=== PATIENT | male | born 1945 | race Caucasian/White ===

== ENCOUNTER 2016-09-01 17:57 | Emergency (ER) | payer OTHER, MEDICAID ==
[2016-09-01 18:11] VITALS: BP 126/91; PULSE 91; RESP 18; TEMP 98.2; O2SAT 93
[2016-09-01] MEDS ORDERED: METAXALONE 800 MG TAB PO ONE (18:37)
--- NOTE | 2016-09-01 18:41 | EDPHY ---
H & P Stated Complaint: middle back pain, fall Time Seen by Provider: 09/01/16 18:29 HPI/ROS: CHIEF COMPLAINT: Back pain HISTORY OF PRESENT ILLNESS: The patient is a 71-year-old man who rolled off of his bed this morning and scratched his back on the [place] chest. He has an abrasion to his left lateral back and a small hematoma. No laceration. No bony tenderness. He has not had any weakness or numbness. No bowel or bladder abnormalities. He is able to ambulate without difficulty. He does take Vicodin at home for chronic back pain but this has not been helping him today. REVIEW OF SYSTEMS: Constitutional: denies: chills, fever, recent illness, recent injury EENTM: denies: blurred vision, double vision, nose congestion Respiratory: denies: cough, shortness of breath Cardiac: denies: chest pain, irregular heart rate, lightheadedness, palpitations Gastrointestinal/Abdominal: denies: abdominal pain, diarrhea, nausea, vomiting, blood streaked stools Genitourinary: denies: dysuria, frequency, hematuria, pain Musculoskeletal: See HPI Skin: See HPI Neurological: denies: headache, numbness, paresthesia, tingling, dizziness, weakness Hematologic/Lymphatic: denies: blood clots, easy bleeding, easy bruising Immunologic/allergic: denies: HIV/AIDS, transplant EXAM: GENERAL: Well-appearing, well-nourished and in no acute distress. HEAD: Atraumatic, normocephalic. EYES: Pupils equal round and reactive to light, extraocular movements intact, sclera anicteric, conjunctiva are normal. ENT: TMs normal, nares patent, oropharynx clear without exudates. Moist mucous membranes. NECK: Normal range of motion, supple without lymphadenopathy or JVD. LUNGS: Breath sounds clear to auscultation bilaterally and equal. No wheezes rales or rhonchi. HEART: Regular rate and rhythm without murmurs, rubs or gallops. ABDOMEN: Soft, nontender, normoactive bowel sounds. No guarding, no rebound. No masses appreciated. BACK: No CVA tenderness, no spinal tenderness, step-offs or deformities EXTREMITIES: Normal range of motion, no pitting or edema. No clubbing or cyanosis. NEUROLOGICAL: Cranial nerves II through XII grossly intact. Normal speech, normal gait. 11/17 strength, normal movement in all extremities, normal sensation PSYCH: Normal mood, normal affect. SKIN: abrasions and small hematoma to left lateral back. Small abrasion to right lateral back as well. Source: Patient Exam Limitations: No limitations - Personal History Current Tetanus/Diphtheria Vaccine: Unsure Current Tetanus Diphtheria and Acellular Pertussis (TDAP): Unsure - Medical/Surgical History Hx Asthma: No Hx Chronic Respiratory Disease: No Hx Diabetes: Yes Hx Cardiac Disease: Yes Hx Renal Disease: No Hx Cirrhosis: No Hx Alcoholism: No Hx HIV/AIDS: No Hx Splenectomy or Spleen Trauma: No Other PMH: 'Growth' R kidney biopsy. CABG [id number] June 1999, stents x3 in March 2014, Appendectomy, Umbilical hernia repair, Tonsils and Adenoids, chronic neck and back pain. - Family History Significant Family History: No pertinent family hx - Social History Smoking Status: Never smoked Alcohol Use: None Drug Use: None Constitutional: Initial Vital Signs Temperature (C) 36.8 C 09/01/16 18:06 Heart Rate 91 09/01/16 18:06 Respiratory Rate 18 09/01/16 18:06 Blood Pressure 126/91 H 09/01/16 18:06 O2 Sat (%) 93 09/01/16 18:06 Allergies/Adverse Reactions: No Known Allergies Allergy (Verified 03/02/16 12:13) Home Medications: Medication Instructions Recorded Aspirin EC [Aspirin EC 325 mg (*)] 325 mg PO DAILY 03/19/14 Cholecalciferol Vit D3 [Vitamin D3 1,000 units PO DAILY 03/19/14 (*)] Donepezil HCl 10 mg PO HS 03/19/14 Fluticasone Nasal [Flonase Nasal 1 sprays NASAL HS 03/19/14 [place]] Insulin Glargine [Lantus 100 80 units SC DAILY 03/19/14 UNITS/ML (*)] Lisinopril [Zestril 20 mg (*)] 20 mg PO DAILY 03/19/14 Magnesium Oxide [Magnesium Oxide 400 mg PO DAILY 03/19/14 400 mg (*)] Omeprazole 20 mg PO DAILY 03/19/14 Rosuvastatin Calcium [Crestor 20mg 20 mg PO HS 03/19/14 (*)] celeCOXIB [CeleBREX] 100 mg PO DAILY 03/19/14 Hydrocodone/APAP 5/325 [[place] 1 tab PO Q6 PRN 03/20/14 5/325 (*)] Prasugrel HCl [Effient 10mg (*)] 10 mg PO DAILY #30 tab 03/21/14 Insulin Aspart [novoLOG] 20 - 30 units SC DAILY PRN 10/15/14 Isosorbide Mononitrate [Isosorbide 60 mg PO DAILY 10/15/14 Mononitrate ER] ALPRAZolam [Xanax 0.25 MG (*)] 0.25 mg PO Q6 PRN 11/11/14 oxyCODONE/APAP 5/325 [Percocet 1 - 2 tab PO Q6H PRN #10 tab 01/30/16 5/325 (*)] Ranexa 03/02/16 oxyCODONE/APAP 5/325 [Percocet 1 tab PO Q4 PRN #15 tab 03/02/16 5/325 (*)] Metaxalone [Skelaxin 800 mg (*)] 800 mg PO TID PRN #12 tab 09/01/16 guaiFENesin [Mucinex 600 MG (*)] 600 mg PO BID #20 tab.er 09/01/16 Medical Decision Making ED Course/Re-evaluation: The patient has a moderate-sized abrasion and hematoma to his back over the muscular area. No spinal tenderness or deformities. No rib pain. No pain with deep inspiration. No shortness of breath. I suspect that he has a soft tissue injury only. I did offer a CT scan to further evaluate the patient declines. He is asking for a muscle relaxer because the Vicodin does not seem to be helping. I will treat him with Skelaxin and we will clean and dress his wound. He is happy with this plan and declines further workup or testing. He will return if his symptoms worsen or change. We discussed signs of spinal cord injury and symptoms to look for. Prior to discharge the patient has the registrar if he could also have a cough suppressant. I return to question him further. He stated that he had a mild dry cough for the last several weeks. He does not think it is contributing to his back pain currently and is simply asking for cough suppressant. He has tried [id number] cough drops without success. I will treat him with guaifenesin. I do not feel comfortable sedating him further with cough syrups since he is already on Vicodin and he will now be on a muscle relaxant. He does not wish to have any further workup. Differential Diagnosis: Partial list of the Differential diagnosis considered include but were not limited to; abrasion, hematoma, laceration, fracture and although unlikely based on the history and physical exam, I also considered radiculopathy, spinal cord injury, infection, syncope. I discussed these differential diagnoses and the plan with the patient as well as the usual and expected course. The patient understands that the diagnosis is provisional and that in medicine we are not always correct and that further workup is often warranted. Usual and customary warnings were given. All of the patient's questions were answered. The patient was instructed to return to the emergency department should the symptoms at all worsen or return, otherwise to followup with the physician as we discussed. Departure - Departure Disposition: Home, Routine, Self-Care Clinical Impression: Hematoma, Abrasion Condition: Fair Instructions: Abrasion (ED), Hematoma (ED) Referrals: Genaro Hirsch MD [Primary Care Provider] - As per Instructions Prescriptions: guaiFENesin [Mucinex 600 MG (*)] 600 mg PO BID #20 tab.er Metaxalone [Skelaxin 800 mg (*)] 800 mg PO TID PRN #12 tab PRN Reason: Spasms
== END 2016-09-01 19:27 | disposition home or self-care (01) ==
DX: S20.222A Contusion of left back wall of thorax, initial encounter (principal); S20.411A Abrasion of right back wall of thorax, initial encounter; E11.9 Type 2 diabetes mellitus without complications; Z95.1 Presence of aortocoronary bypass graft; Z79.82 Long term (current) use of aspirin; Z79.4 Long term (current) use of insulin; W22.8XXA Striking against or struck by other objects, initial encounter

== ENCOUNTER 2016-09-04 16:20 | Emergency (ER) | payer OTHER, MEDICAID ==
[2016-09-04 16:41] VITALS: RESP 16; TEMP 99
[2016-09-04] MEDS ORDERED: OXYCODONE/APAP 5/325 TAB PO ONE (17:48)
--- NOTE | 2016-09-04 17:52 | EDPHY ---
H & P Stated Complaint: Continued cough and associated back painafter being seen in the ED recently Time Seen by Provider: 09/04/16 17:40 HPI/ROS: CHIEF COMPLAINT: Back pain HISTORY OF PRESENT ILLNESS: The patient is a 71-year-old man who comes to the emergency department complaining of low back pain ever since he rolled out of bed 3 days ago. I saw him here in the emergency department. He had an abrasion and small hematoma to his lumbar region that were cleaned and dressed. He had taken Vicodin at home without improvement. At the time he declined CT imaging. He states however that the Skelaxin we provided has not been helping any continues to be in pain. He is here requesting stronger pain medication. Patient states he is not changed dressings or taken a shower since he was here 3 days ago. REVIEW OF SYSTEMS: Constitutional: denies: chills, fever, recent illness, recent injury EENTM: denies: blurred vision, double vision, nose congestion Respiratory: denies: cough, shortness of breath Cardiac: denies: chest pain, irregular heart rate, lightheadedness, palpitations Gastrointestinal/Abdominal: denies: abdominal pain, diarrhea, nausea, vomiting, blood streaked stools Genitourinary: denies: dysuria, frequency, hematuria, pain Musculoskeletal: See HPI Skin: See HPI Neurological: denies: headache, numbness, paresthesia, tingling, dizziness, weakness Hematologic/Lymphatic: denies: blood clots, easy bleeding, easy bruising Immunologic/allergic: denies: HIV/AIDS, transplant EXAM: GENERAL: Well-appearing, well-nourished and in no acute distress. HEAD: Atraumatic, normocephalic. EYES: Pupils equal round and reactive to light, extraocular movements intact, sclera anicteric, conjunctiva are normal. ENT: TMs normal, nares patent, oropharynx clear without exudates. Moist mucous membranes. NECK: Normal range of motion, supple without lymphadenopathy or JVD. LUNGS: Breath sounds clear to auscultation bilaterally and equal. No wheezes rales or rhonchi. HEART: Regular rate and rhythm without murmurs, rubs or gallops. ABDOMEN: Soft, nontender, normoactive bowel sounds. No guarding, no rebound. No masses appreciated. BACK: upper Lumbar abrasion/hematoma, dressed, EXTREMITIES: Normal range of motion, no pitting or edema. No clubbing or cyanosis. NEUROLOGICAL: Cranial nerves II through XII grossly intact. Normal speech, normal gait. 5/5 strength, normal movement in all extremities, normal sensation PSYCH: Normal mood, normal affect. SKIN: Warm, dry, normal turgor, no visible rashes or lesions. Source: Patient Exam Limitations: No limitations - Personal History Current Tetanus/Diphtheria Vaccine: Yes Current Tetanus Diphtheria and Acellular Pertussis (TDAP): Yes - Medical/Surgical History Hx Asthma: No Hx Chronic Respiratory Disease: No Hx Diabetes: Yes Hx Cardiac Disease: Yes Hx Renal Disease: No Hx Cirrhosis: No Hx Alcoholism: No Hx HIV/AIDS: No Hx Splenectomy or Spleen Trauma: No Other PMH: 'Growth' R kidney biopsy. CABG [id number] June 1999, stents x3 in March 2014, Appendectomy, Umbilical hernia repair, Tonsils and Adenoids, chronic neck and back pain. - Social History Smoking Status: Never smoked Alcohol Use: None Drug Use: None Constitutional: Initial Vital Signs Temperature (C) 37.2 C 09/04/16 16:36 Heart Rate 84 09/04/16 16:36 Respiratory Rate 16 09/04/16 16:36 Blood Pressure 101/70 09/04/16 16:36 O2 Sat (%) 96 09/04/16 16:36 O2 Delivery Mode Room Air Allergies/Adverse Reactions: No Known Allergies Allergy (Verified 03/02/16 12:13) Home Medications: Medication Instructions Recorded Aspirin EC [Aspirin EC 325 mg (*)] 325 mg PO DAILY 03/19/14 Cholecalciferol Vit D3 [Vitamin D3 1,000 units PO DAILY 03/19/14 (*)] Donepezil HCl 10 mg PO HS 03/19/14 Fluticasone Nasal [Flonase Nasal 1 sprays NASAL HS 03/19/14 [place]] Insulin Glargine [Lantus 100 80 units SC DAILY 03/19/14 UNITS/ML (*)] Lisinopril [Zestril 20 mg (*)] 20 mg PO DAILY 03/19/14 Magnesium Oxide [Magnesium Oxide 400 mg PO DAILY 03/19/14 400 mg (*)] Omeprazole 20 mg PO DAILY 03/19/14 Rosuvastatin Calcium [Crestor 20mg 20 mg PO HS 03/19/14 (*)] celeCOXIB [CeleBREX] 100 mg PO DAILY 03/19/14 Hydrocodone/APAP 5/325 [[place] 1 tab PO Q6 PRN 03/20/14 5/325 (*)] Prasugrel HCl [Effient 10mg (*)] 10 mg PO DAILY #30 tab 03/21/14 Insulin Aspart [novoLOG] 20 - 30 units SC DAILY PRN 10/15/14 Isosorbide Mononitrate [Isosorbide 60 mg PO DAILY 10/15/14 Mononitrate ER] ALPRAZolam [Xanax 0.25 MG (*)] 0.25 mg PO Q6 PRN 11/11/14 oxyCODONE/APAP 5/325 [Percocet 1 - 2 tab PO Q6H PRN #10 tab 01/30/16 5/325 (*)] Ranexa 03/02/16 oxyCODONE/APAP 5/325 [Percocet 1 tab PO Q4 PRN #15 tab 03/02/16 5/325 (*)] Metaxalone [Skelaxin 800 mg (*)] 800 mg PO TID PRN #12 tab 09/01/16 guaiFENesin [Mucinex 600 MG (*)] 600 mg PO BID #20 tab.er 09/01/16 oxyCODONE/APAP 5/325 [Percocet 1 - 2 tab PO Q4H PRN #20 tab 09/04/16 5/325 (*)] Medical Decision Making - Diagnostics Imaging: Results: CT scan of the lumbar spine was obtained. The results of the study are negative for bony injury, hematoma visible superficially. The study was read by Dr. Justin Denny. I viewed the images myself on the PACS system. ED Course/Re-evaluation: We discussed the CT results. The patient is relieved. He states that his pain is better controlled with Percocet. I will discharge him with this. His cough that was previously hurting him is resolving. He is ambulatory. He is ready to go home and declines further workup or testing at this time. Differential Diagnosis: Partial list of the Differential diagnosis considered include but were not limited to; back pain, abrasion, hematoma and although unlikely based on the history and physical exam, I also considered bony injury, spinal cord injury he , pneumonia. I discussed these differential diagnoses and the plan with the patient as well as the usual and expected course. The patient understands that the diagnosis is provisional and that in medicine we are not always correct and that further workup is often warranted. Usual and customary warnings were given. All of the patient's questions were answered. The patient was instructed to return to the emergency department should the symptoms at all worsen or return, otherwise to followup with the physician as we discussed. - Data Points Medications Given: Discontinued Medications Oxycodone/Acetaminophen (Percocet 5/325) 2 tab PO EDNOW ONE Stop: 09/04/16 17:49 Last Admin: 09/04/16 18:10 Dose: 2 tab Departure - Departure Disposition: Home, Routine, Self-Care Clinical Impression: Hematoma Condition: Fair Instructions: Oxycodone/Acetaminophen (By mouth), Hematoma (ED) Referrals: Genaro Hirsch MD [Primary Care Provider] - As per Instructions Prescriptions: oxyCODONE/APAP 5/325 [Percocet 5/325 (*)] 1 - 2 tab PO Q4H PRN #20 tab PRN Reason: Pain, Severe
[2016-09-04 19:15] VITALS: BP 95/59; PULSE 73; O2SAT 95
== END 2016-09-04 19:14 | disposition home or self-care (01) ==
DX: S30.0XXA Contusion of lower back and pelvis, initial encounter (principal); E11.9 Type 2 diabetes mellitus without complications; Z95.1 Presence of aortocoronary bypass graft; Z95.5 Presence of coronary angioplasty implant and graft; Z79.82 Long term (current) use of aspirin; Z79.4 Long term (current) use of insulin; W06.XXXA Fall from bed, initial encounter

== ENCOUNTER 2016-09-19 09:27 | Day surgery (SDC) | payer OTHER, MEDICAID ==
[2016-09-19] MEDS ORDERED: FAMOTIDINE 20 MG TAB PO ONE (09:33)
[2016-09-19] MEDS ORDERED: diphenhydrAMINE 25 MG CAP PO ONE (09:33)
[2016-09-19] MEDS ORDERED: DIAZEPAM 5 MG TAB PO ONE (09:33)
[2016-09-19] MEDS ORDERED: ASPIRIN EC 325 MG TAB PO ONE (09:33)
[2016-09-19] MEDS ORDERED: NS 1,000 ML IV ONE (09:33)
--- NOTE | 2016-09-19 09:56 | CPEKG ---
Heart Rate: 67 RR Interval: 896 P-R Interval: 284 QRSD Interval: 108 QT Interval: 376 QTC Interval: 397 P [place]: 23 QRS [place]: 60 T Wave [place]: 254 EKG Severity - ABNORMAL ECG - EKG Impression: SINUS RHYTHM EKG Impression: FIRST DEGREE AV BLOCK EKG Impression: INFERIOR INFARCT, AGE INDETERMINATE EKG Impression: NONSPECIFIC T ABNORMALITIES, ANT-LAT LEADS Preliminary Awaiting MD Review
[2016-09-19 10:12] LABS: % IMMATURE GRANULYOCYTES 0.5 % (0.0-1.1); ABSOLUTE IMMATURE GRANULOCYTES 0.02 10^3/uL (0.00-0.10); ADD DIFF? NO; ADD MORPH? NO; ADD SCAN? NO; ATYPICAL LYMPHOCYTE FLAG 20 (0-99); FRAGMENT RBC FLAG 0 (0-99); HEMATOCRIT 34.1 % (40.0-51.0); HEMOGLOBIN 12.4 g/dL (13.7-17.5); LEFT SHIFT FLG 0 (0-99); LIPEMIA HEMOLYSIS FLAG 90 (0-99); MEAN CELL HEMOGLOBIN 33.2 pg (27.9-34.1); MEAN CELL HEMOGLOBIN CONCENTR. 36.4 g/dL (32.4-36.7); MEAN CELL VOLUME 91.4 fL (81.5-99.8); MEAN PLATELET VOLUME 9.8 fL (8.7-11.7); PLATELET CLUMPS FLAG 0 (0-99); PLATELET COUNT 293 10^3/uL (150-400); RED BLOOD CELL COUNT 3.73 10^6/uL (4.40-6.38); RED CELL DISTRIBUTION WIDTH 12.7 % (11.5-15.2)
[2016-09-19 10:20] LABS: INR 0.98 (0.83-1.16); PROTIME(PATIENT) 12.9 SEC (12.0-15.0)
[2016-09-19 10:43] LABS: ANION GAP 9 mEq/L (8-16); CALCIUM 9.7 mg/dL (8.5-10.4); CARBON DIOXIDE 24 mEq/l (22-31); CHLORIDE 100 mEq/L (97-110); CHOLESTEROL 133 mg/dL (140-220); CHOLESTEROL/HDL RATIO 3.33 RATIO (1.00-4.97); CREATININE 1.3 mg/dL (0.7-1.3); GLOMERULAR FILTRATION RATE 54; GLUCOSE 191 mg/dL (70-100); HIGH DENSITY LIPOPROTEIN 40 mg/dL (40-65); LOW DENSITY LIPOPROTEIN 64 mg/dL (80-100); MAGNESIUM 1.9 mg/dL (1.6-2.3); NON-HIGH DENSITY LIPOPROTEIN 93 mg/dL (90-129); POTASSIUM 4.5 mEq/L (3.5-5.2); SODIUM 133 mEq/L (134-144); TRIGLYCERIDE 145 mg/dL (40-150); VERY LOW DENSITY LIPOPROTEINS 29 mg/dL (8-25)
[2016-09-19] MEDS ORDERED: MIDAZOLAM 2 MG/2 ML VIAL ONE (11:52)
[2016-09-19] MEDS ORDERED: fentaNYL 100 MCG/2 ML INJ ONE (11:52)
[2016-09-19] MEDS ORDERED: LIDOCAINE 1% 30 ML SDV ONE (11:52)
[2016-09-19] MEDS ORDERED: IOPAMIDOL (ISOVUE-370) 150 ML BTL IV ONE (11:53)
[2016-09-19] MEDS ORDERED: BIVALIRUDIN 250 MG/5 ML VIAL IV ONE (12:38)
[2016-09-19] MEDS ORDERED: NITROGLYCERIN 1,500 MCG/15 ML VIAL MISC ONE (12:38)
--- NOTE | 2016-09-19 13:31 | PDDXCAT ---
Diagnostic Cath Note - . Date: 09/19/16 Intervention: None *Procedure Indication: Increased fatigue, dizziness and shortness of breath, new resting EKG abnormalities suggestive of ischemia, history of coronary disease s/p CABG. Access: right femoral artery Procedure: 1. selective coronary angiography of [place] and graft vessels (BYRD to LAD, vein grafts to the diagonal, OM and RCA). 2. left heart catheterization 3. left ventriculogram *Materials Selective Coronary Angiography size: 6F Selective Coronary Materials: JL4.0, JR4.0, ABIMAEL, [place] *Findings-Selective coronary angiography LM: The left main is ~5 mm in size and trifurcates into an LAD, ramus and circumflex system. There is a non-flow limiting 34% stenosis of the left main that provides flow to the diagonal circulation and proximal LAD. LAD: The LAD is severely diseased but has evidence of competitive flow from a patent BYRD graft. There are left to right collaterals to the distal PDA. LCX: The left circumflex stent is 100% occluded at its origin from the left main coronary with GEETA 0 flow. There is evidence of flow to the distal vessel from left to left collaterals. Ramus: 100% occluded with GEETA 0 flow in the proximal vessel; however, there is flow in the distal vessel via left to left collaterals. RCA: The right coronary artery is 100% occluded with GEETA 0 flow. BYRD: The BYRD to the LAD is widely patent with GEETA III flow. The distal LAD is diffusely diseased but no flow limiting obstruction is identified. The distal LAD provides collaterals to the distal PDA and weakly so to the circumflex obtuse marginal system. rSVG: The vein grafts to the diagonal, OM and RCA are 100% occluded with GEETA 0 flow. *Findings-Left Heart Catheterization LVEDP: 12 mmHg Ejection Fraction: 35-40% Wall motion analysis: There is basal inferior wall akinesis consistent with prior inferior infarct. There is 2+ mitral regurgitation. The visualized portion of the thoracic aorta revealed three sinuses of Valsalva and is the upper limits of normal in size. There was no evidence of nicole aneurysm or dissection. *Summary Complications: None Estimated blood loss: <50ml Closure method: Angioseal Assessment: 1. Severe [place] and graft vessel coronary artery disease and described above. Compared to a prior angiogram performed in March of 2014, the circumflex stent placed at that time is now occluded. There is in-stent restenosis involving the left main stent estimated at 40%. However, I do not believe that opening the circumflex stent would be beneficial as it will likely re-occlude given the small nature of the distal vessels. 2. 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 I have ordered an echocardiogram for further assessment of the patient's ejection fraction. If his ejection fraction <35%, he may benefit from the implantation of a defibrillator. I have also ordered TSH and BNP labs. If he is found to have serologic evidence of hypothyroidism, his thyroid hormones should be replaced. If he is found to have evidence of an elevated BNP, more aggressive diuresis and consideration should be given to stopping his lesa inhibitor, and after appropriate wash out period, placing him on Entresto, which may help to improve his long-term survival. We should continue to treat his coronary artery disease medically with daily statin therapy. Patient Problems: Problems Problem Status Onset CAD, multiple vessel Acute Left foot pain Acute
[2016-09-19] MEDS ORDERED: OXYCODONE/APAP 5/325 TAB PO PRN (13:47)
[2016-09-19] MEDS ORDERED: NITROGLYCERIN 0.4 MG BTL SL PRN (13:52)
[2016-09-19] MEDS ORDERED: ONDANSETRON 4 MG/2 ML VIAL IVP PRN (13:52)
[2016-09-19] MEDS ORDERED: ATROPINE SULFATE 1 MG/10 ML SYR IVP PRN (13:52)
--- NOTE | 2016-09-20 16:31 | ECHO ---
[id number] + + [address] : : [place] [address] : : [phone] + + Adult Echocardiographic Report + ---------+ :Name: SANDY BAUMestefany Date: 09/19/2016 04:27 PM : : Hospital Admission Number: [id number] Loca tion: CVC: :: 1945 Gender: Male : :Age: 71 yrs Race: WH : :Reason For Study: Eval LV Fx : :History: Post Cath : + ---------+ MMode/2D Measurements \T\ Calculations IVSd: 0.98 cm LVIDd: 4.4 cmFS: 26.6 % LVLd ap4: 7.0 cm LVPWd: 1.1 cm LVIDs: 3.2 cmEDV(Teich): 86.2 ml EDV(MOD-sp4): 67.0 ml ESV(Teich): 41.2 ml LVLs ap4: 6.3 cm EF(Teich): 52.2 % ESV(MOD-sp4): 29.0 ml EF(MOD-sp4): 56.7 % SV(MOD-sp4): 38.0 ml Normal Measurement Values: + + :LVIDd (3.5-5.7cm) IVSd (0.6-1.1cm) LVPWd (0.6-1.1cm) Aortic Root (2.0-3.7cm)Left Atrium (1.5-4.0cm): :LV Vol(d) (76-115ml) LV Vol(s) (29-48ml) Ejec Fraction (50-65%)PV [place] (0.6- 1.2m/s) TV [place] (0.4-1.0m/s) : :MV E [place] (0.8-1.0m/s)MV A [place] (0.3-1.0m/s)LVOT [place] (0.7-1.2m/s) Asc Ao [place] ( 0.9-1.8m/s) : + + Left Ventricle Ejection Fraction = 50%. There is inferior wall hypokinesis. Conclusion This is a limited echo to evaluate for LV wall motion. Normal LV size with low normal LV systolic function. EF= 50%. Severe hypoinesis of the inferior wall. Final Reading Physician: Gary Fam signed on 09/20/2016 04:30 PM Ordering Physician: Kumar Hilliard Performed By: Baljinder Mohamud, PADMACS
== END 2016-09-19 19:00 | disposition home or self-care (01) ==
LOC: FCATH 09:27
PROVIDERS: ATTEND Internal Medicine Cardiovascular Disease
PROC: B2111ZZ Fluoroscopy of Multiple Coronary Arteries using Low Osmolar Contrast (ICD-10-PCS; principal; 2016-09-19)
PROC: B2181ZZ Fluoroscopy of Left Internal Mammary Bypass Graft using Low Osmolar Contrast (ICD-10-PCS; principal; 2016-09-19)
PROC: B2151ZZ Fluoroscopy of Left Heart using Low Osmolar Contrast (ICD-10-PCS; principal; 2016-09-19)
PROC: B2131ZZ Fluoroscopy of Multiple Coronary Artery Bypass Grafts using Low Osmolar Contrast (ICD-10-PCS; principal; 2016-09-19)
PROC: 4A023N7 Measurement of Cardiac Sampling and Pressure, Left Heart, Percutaneous Approach (ICD-10-PCS; principal; 2016-09-19)
DX: T82.855A Stenosis of coronary artery stent, initial encounter (principal); I25.10 Atherosclerotic heart disease of native coronary artery without angina pectoris; E10.9 Type 1 diabetes mellitus without complications; K21.9 Gastro-esophageal reflux disease without esophagitis; G47.33 Obstructive sleep apnea (adult) (pediatric); Z95.1 Presence of aortocoronary bypass graft; Z95.0 Presence of cardiac pacemaker; Z95.5 Presence of coronary angioplasty implant and graft
CPT/HCPCS: C1760; J0583; J1644; J2250; J3010; Q9967

== ENCOUNTER → 2016-11-27 | Outpatient (CLI) | payer OTHER, MEDICAID | LOC: BMCIMAGING 16:11 | PROVIDERS: ATTEND Internal Medicine | DX: M50.30 Other cervical disc degeneration, unspecified cervical region (principal); V89.2XXA Person injured in unspecified motor-vehicle accident, traffic, initial encounter; Z95.0 Presence of cardiac pacemaker; Z95.1 Presence of aortocoronary bypass graft ==

== ENCOUNTER → 2017-08-29 | Outpatient (CLI) | payer OTHER, MEDICAID | LOC: FIMAGING 14:18 | PROVIDERS: ATTEND Psychiatry & Neurology Neurology | DX: R54 Age-related physical debility (principal) ==

== ENCOUNTER 2017-11-06 14:32 | Emergency (ER) | payer OTHER, MEDICAID ==
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
[2017-11-06 17:13] LABS: PLATELET COUNT 226 10^3/uL (150-400)
[2017-11-06 17:23] LABS: INR 0.92 (0.83-1.16); PROTIME(PATIENT) 12.6 SEC (12.0-15.0)
[2017-11-06 18:00] VITALS: BP 119/88
== END 2017-11-06 17:58 | disposition home or self-care (01) ==
DX: S06.0X0A Concussion without loss of consciousness, initial encounter (principal); M62.89 Other specified disorders of muscle; N18.9 Chronic kidney disease, unspecified; G89.29 Other chronic pain; E11.9 Type 2 diabetes mellitus without complications; Z79.82 Long term (current) use of aspirin; Z79.4 Long term (current) use of insulin; Z95.5 Presence of coronary angioplasty implant and graft; W07.XXXA Fall from chair, initial encounter

== ENCOUNTER 2018-03-31 16:06 | Emergency (ER) | payer OTHER, MEDICAID ==
--- NOTE | 2018-03-31 16:21 | EDPHY ---
H & P Stated Complaint: rolled left ankle two nights ago Time Seen by Provider: 03/31/18 16:15 HPI/ROS: HPI: This is a 73-year-old male who presents with Chief Complaint: rolled left ankle two nights ago Location: Left ankle, left top of foot Quality: Injury Duration: 2 nights ago Signs and Symptoms: No bleeding, no radiation, no numbness, no weakness, no tingling, no incontinence, no decreased range of motion, no swelling, + pain, no fever Timing: Acute Severity: [id number] Context: Patient reports 2 nights ago he had purchased a [employer] sandwich. As he was walking out of the parking lot he did not see the curb and stepped awkwardly off of a curb causing his ankle to roll. He reports that he initially felt discomfort in the medial malleolus of his ankle but this resolved. While he was at the [employer] football game last night he started to experience pain in the 3rd metatarsal and midfoot area. He reports that is nonradiating in nature but moderate. He left the football game early and once he sat in the car the pain resolved. He has a prior history of fracture in his toe diagnosed with podiatry and he is wondering if he has a fracture now. He is ambulatory without deficits. Denies LOC/head injury/neck pain/dizziness/nausea/vomiting/amnesia. Modifying Factors: None Comment: ROS: A comprehensive 10 system review of systems is otherwise negative aside from elements mentioned in the history of present illness. MEDICAL/SURGICAL/SOCIAL HISTORY: Medical/Surgical history: 'Growth' R kidney biopsy CABG [id number] June 1999, stents x3 in March 2014, Appendectomy, Umbilical hernia repair, Tonsils and Adenoids, chronic neck and back pain. Social history: Retired. CONSTITUTIONAL: Elderly white male, very talkative, awake and alert, no obvious distress HEENT: Atraumatic and normocephalic. NECK: supple EXTREMITIES: 2/2 pulses, strength 5/5, left Ankle: Plantar flexion to 50, dorsiflexion to 20. Foot inversion to 35 degree. No tenderness/swelling Anterior talofibular ligament. No tenderness/swelling Calcaneofibular ligament , no tenderness/swelling posterior talofibular ligament, no tenderness/swelling posterior inferior tibiofibular ligament. Achilles tendon intact. Tenderness to palpation at the 3rd base metatarsal; no ecchymosis or deformity appreciated. DIP/PIP/MCP flexion/extension intact with good light touch sensation. no deformities, no clubbing, no cyanosis or edema. NEUROLOGICAL: no focal neuro deficits. GCS 15. Light touch sensation intact. SKIN: Warm and dry, no erythema. no rash. Good capillary refill. Source: Patient Exam Limitations: No limitations - Medical/Surgical History Hx Asthma: No Hx Chronic Respiratory Disease: No Hx Diabetes: Yes Hx Cardiac Disease: Yes Hx Renal Disease: No Hx Cirrhosis: No Hx Alcoholism: No Hx HIV/AIDS: No Hx Splenectomy or Spleen Trauma: No Other PMH: 'Growth' R kidney biopsy. CABG [id number] June 1999, stents x3 in March 2014, Appendectomy, Umbilical hernia repair, Tonsils and Adenoids, chronic neck and back pain. - Social History Smoking Status: Never smoked Constitutional: Initial Vital Signs Temperature (C) 36.7 C 03/31/18 16:08 Heart Rate 65 03/31/18 16:08 Respiratory Rate 18 03/31/18 16:08 Blood Pressure 157/86 H 03/31/18 16:08 O2 Sat (%) 94 03/31/18 16:08 O2 Delivery Mode Room Air Allergies/Adverse Reactions: No Known Allergies Allergy (Verified 03/31/18 16:08) Home Medications: Medication Instructions Recorded Aspirin EC [Aspirin EC 325 mg (*)] 325 mg PO HS 03/19/14 Cholecalciferol Vit D3 [Vitamin D3 4,000 units PO DAILY 03/19/14 (*)] Fluticasone Nasal [Flonase Nasal 1 - 2 sprays EACHNARE HS 03/19/14 [place]] Lisinopril [Zestril 20 mg (*)] 20 mg PO DAILY 03/19/14 Magnesium Oxide [Magnesium Oxide 400 mg PO DAILY 03/19/14 400 mg (*)] Omeprazole 20 mg PO DAILY 03/19/14 Rosuvastatin Calcium [Crestor 20mg 20 mg PO HS 03/19/14 (*)] Hydrocodone/APAP 5/325 [[place] 1 tab PO Q6 PRN 03/20/14 5/325 (*)] Prasugrel HCl [Effient 10mg (*)] 10 mg PO DAILY #30 tab 03/21/14 Isosorbide Mononitrate [Isosorbide 60 mg PO DAILY 10/15/14 Mononitrate ER] ALPRAZolam [Xanax 0.25 MG (*)] 0.25 mg PO HS PRN 11/11/14 Ranolazine [RANEXA 500mg (RX)] 500 mg PO BID 03/02/16 Donepezil HCl [Aricept 5 MG (*)] 10 mg PO HS 09/19/16 Insulin Detemir [Levemir] 40 unit SQ BID 09/19/16 Liraglutide [Victoza 3-[place]] 0.6 mg SQ DAILY 09/19/16 Meclizine HCl [Meclizine HCl 25 mg 25 mg PO DAILY PRN 09/19/16 (RX,OTC)] Metoprolol Succinate Xr [Toprol Xl 50 mg PO DAILY 09/19/16 50 mg (*)] Nitroglycerin [Nitrostat 0.4 mg 0.4 mg SL Q5M PRN 09/19/16 (*)] metFORMIN HCL [Glucophage 500 mg 500 mg PO BIDMEAL 09/19/16 (*)] oxyCODONE/APAP 5/325 [Percocet 1 tab PO Q6H PRN 09/19/16 5/325 (*)] oxyCODONE/APAP 5/325 [Percocet 1 - 2 tab PO Q4H PRN #10 tab 03/31/18 5/325 (*)] Medical Decision Making Procedures: Procedure: Splint placement. A left walking boot was applied by the Emergency Room eye technician. After application of the splint I returned and re-examined the patient. The splint was adequately immobilizing the joint and distal to the splint the patient's circulation and sensation was intact. ED Course/Re-evaluation: Left foot x-ray ordered and my read shows no fracture, dislocation. ? Foreign body Given walking boot with podiatry follow-up. No signs of neurovascular compromise/tenting of skin/compartment syndrome/ extremities and joints examined above and below area of concern and are neurovascularly intact. This patient was seen under the supervision of my secondary supervising physician. I evaluated care for this patient independently. Discussed this patient with Dr. Oseguera. Differential Diagnosis: Ankle injury differential diagnosis includes but is not limited to tibia fracture, fibula fracture, metatarsal fracture, LisFranc fracture, achilles tendon rupture, sprain. Departure - Departure Disposition: Home, Routine, Self-Care Clinical Impression: Sprain of left foot Qualifiers: Encounter type: initial encounter Qualified Code(s): S93.602A - Unspecified sprain of left foot, initial encounter Condition: Good Instructions: Foot Sprain (ED) Additional Instructions: Wear the walking boot while out of bed until pain free. Take Tylenol 650 mg every 4 hours and/or Ibuprofen 600 mg every 8 hours with food as needed for pain. Take Percocet 1 tab every 6 hr as needed for severe or breakthrough pain. Apply ice for 30 minutes at a time; 2-3 times per day for the next 1-2 days. Follow up with Podiatry in 7-10 days if symptoms persist at which time they will evaluate and recommend with you if conservative management versus further adjuvant therapy is indicated. The x-rays obtained in the emergency department today demonstrate no evidence of an obvious fracture. Referrals: Genaro Hirsch MD [Primary Care Provider] - As per Instructions Edson Burnett MD [Doctor of Podiatric Medicine] - As per Instructions Prescriptions: oxyCODONE/APAP 5/325 [Percocet 5/325 (*)] 1 - 2 tab PO Q4H PRN #10 tab PRN Reason: Pain, Severe
[2018-03-31 17:25] VITALS: BP 147/82
== END 2018-03-31 17:25 | disposition home or self-care (01) ==
DX: S93.602A Unspecified sprain of left foot, initial encounter (principal); X50.9XXA Other and unspecified overexertion or strenuous movements or postures, initial encounter; Y92.481 Parking lot as the place of occurrence of the external cause; Y93.9 Activity, unspecified; Y99.9 Unspecified external cause status
CPT/HCPCS: 73630; 99283; L4386

== ENCOUNTER → 2018-05-14 | Outpatient (CLI) | payer OTHER, MEDICAID | LOC: BHFA 13:00 | PROVIDERS: ATTEND Internal Medicine Cardiovascular Disease | DX: R07.9 Chest pain, unspecified (principal); I49.5 Sick sinus syndrome; I25.10 Atherosclerotic heart disease of native coronary artery without angina pectoris; I25.9 Chronic ischemic heart disease, unspecified; Z95.0 Presence of cardiac pacemaker ==

== ENCOUNTER 2018-07-04 16:45 | Emergency (ER) | payer OTHER, MEDICAID ==
[2018-07-04 16:54] VITALS: BP 140/73
--- NOTE | 2018-07-04 17:03 | EDPHY ---
H & P Time Seen by Provider: 07/04/18 17:03 HPI/ROS: CHIEF COMPLAINT: Right ear pain HISTORY OF PRESENT ILLNESS: The patient is a 73-year-old male with a history of recurrent otitis externa he reporting right ear pain for the last few days. He has had a small amount of white drainage but no bloody drainage from the ear. He denies any trauma to the ear. His the fever and neck stiffness. Patient denies any chest pain shortness of breath. ROS As detailed in HPI Smoking Status: Never smoked Physical Exam: General: Alert and oriented. Nontoxic appearing. No acute distress HEENT: Pupils PERRLA. No oral lesions. Right external auditory meatus is edematous with white exudate. Unable to visualize the tympanic membrane due to swelling. Left external auditory meatus appears normal with normal tympanic membrane is pearly martinez with no effusion or erythema Cardiopulmonary: Regular rate and rhythm. No lower extremity edema Skin: [place] warm and dry. No lesions. Muscle skeletal: Moving all 4 extremities. Equal strength in upper extremities and lower extremities. Ambulatory. Constitutional: Initial Vital Signs Temperature (C) 36.4 C 07/04/18 16:52 Heart Rate 70 07/04/18 16:52 Respiratory Rate 16 07/04/18 16:52 Blood Pressure 140/73 H 07/04/18 16:52 O2 Sat (%) 95 07/04/18 16:52 O2 Delivery Mode Room Air Allergies/Adverse Reactions: No Known Allergies Allergy (Verified 07/04/18 16:50) Home Medications: Medication Instructions Recorded Aspirin EC [Aspirin EC 325 mg (*)] 325 mg PO HS 03/19/14 Cholecalciferol Vit D3 [Vitamin D3 4,000 units PO DAILY 03/19/14 (*)] Fluticasone Nasal [Flonase Nasal 1 - 2 sprays EACHNARE HS 03/19/14 [place]] Lisinopril [Zestril 20 mg (*)] 20 mg PO DAILY 03/19/14 Magnesium Oxide [Magnesium Oxide 400 mg PO DAILY 03/19/14 400 mg (*)] Omeprazole 20 mg PO DAILY 03/19/14 Rosuvastatin Calcium [Crestor 20mg 20 mg PO HS 03/19/14 (*)] Hydrocodone/APAP 5/325 [[place] 1 tab PO Q6 PRN 09/05/14 5/325 (*)] Prasugrel HCl [Effient 10mg (*)] 10 mg PO DAILY #30 tab 03/21/14 Isosorbide Mononitrate [Isosorbide 60 mg PO DAILY 10/15/14 Mononitrate ER] Ranolazine [RANEXA 500mg (RX)] 500 mg PO BID 03/02/16 Donepezil HCl [Aricept 5 MG (*)] 10 mg PO HS 09/19/16 Insulin Detemir [Levemir] 40 unit SQ BID 09/19/16 Metoprolol Succinate Xr [Toprol Xl 50 mg PO DAILY 09/19/16 50 mg (*)] Nitroglycerin [Nitrostat 0.4 mg 0.4 mg SL Q5M PRN 09/19/16 (*)] metFORMIN HCL [Glucophage 500 mg 500 mg PO BIDMEAL 09/19/16 (*)] oxyCODONE/APAP 5/325 [Percocet 1 tab PO Q6H PRN 09/19/16 5/325 (*)] Ciprofloxacin/Hydrocortisone 10 ml OT BID 7 Days #1 drops.susp 07/04/18 [Cipro Hc Otic Suspension] Medical Decision Making ED Course/Re-evaluation: Patient here with obvious otitis externa as source of his pain. He was started on otic antibiotic drops. There is no tenderness over the mastoid process to suggest mastoiditis. He has no neck stiffness to indicate meningitis. Considered ACS, pharyngitis, mastoiditis the, otitis media. Departure - Departure Disposition: Home, Routine, Self-Care Clinical Impression: Otitis externa Condition: Good Instructions: Otitis Externa (ED) Referrals: Genaro Hirsch MD [Primary Care Provider] - As per Instructions Prescriptions: Ciprofloxacin/Hydrocortisone [Cipro Hc Otic Suspension] 10 ml OT BID 7 Days #1 drops.susp
== END 2018-07-04 17:15 | disposition home or self-care (01) ==
DX: H66.91 Otitis media, unspecified, right ear (principal)

== ENCOUNTER 2018-08-11 18:02 | Emergency (ER) | payer OTHER, MEDICAID ==
--- NOTE | 2018-08-11 18:11 | EDPHY ---
H & P Time Seen by Provider: 08/11/18 18:11 HPI/ROS: CHIEF COMPLAINT: Ear pain, discharge, decreased hearing HISTORY OF PRESENT ILLNESS: The patient presents the ED with complaints of bilateral ear pain, discharge and decreased hearing out of his left ear. The patient does have a history of frequent otitis externa. He was treated with Ciprodex drops in June for similar symptoms. The patient had improvement of his symptoms however has developed recurrence of his symptoms over the past several days. The patient denies any fever, cough or sore throat. He denies any difficulty swallowing. He denies any headache, neck stiffness, numbness or weakness. REVIEW OF SYSTEMS: A comprehensive 10 point review of systems is otherwise negative aside from elements mentioned in the history of present illness. Source: Patient Exam Limitations: No limitations - Medical/Surgical History Hx Asthma: No Hx Chronic Respiratory Disease: No Hx Diabetes: Yes Hx Cardiac Disease: Yes Hx Renal Disease: No Hx Cirrhosis: No Hx Alcoholism: No Hx HIV/AIDS: No Hx Splenectomy or Spleen Trauma: No Other PMH: 'Growth' R kidney biopsy. CABG [id number] June 1999, stents x3 in March 2014, Appendectomy, Umbilical hernia repair, Tonsils and Adenoids, chronic neck and back pain. - Social History Smoking Status: Never smoked - Physical Exam Exam: General Appearance: Alert, no distress Eyes: Evidence of bilateral external otitis externa, left otitis media ENT, Mouth: Mucous membranes moist Respiratory: There are no retractions, lungs are clear to auscultation Cardiovascular: Regular rate and rhythm Gastrointestinal: Abdomen is soft and nontender, no masses, bowel sounds normal Neurological: A&O, normal motor function, normal sensory exam, normal cranial nerves Skin: Warm and dry, no rashes Musculoskeletal: Neck is supple nontender, specifically no meningeal symptoms Extremities: symmetrical, full range of motion Psychiatric: Patient is oriented X 3, there is no agitation Constitutional: Initial Vital Signs Temperature (C) 36.5 C 08/11/18 18:09 Heart Rate 65 08/11/18 18:09 Respiratory Rate 18 08/11/18 18:09 Blood Pressure 125/74 H 08/11/18 18:09 O2 Sat (%) 96 08/11/18 18:09 O2 Delivery Mode Room Air Allergies/Adverse Reactions: No Known Allergies Allergy (Verified 08/11/18 18:12) Home Medications: Medication Instructions Recorded Aspirin EC [Aspirin EC 325 mg (*)] 325 mg PO HS 03/19/14 Cholecalciferol Vit D3 [Vitamin D3 4,000 units PO DAILY 03/19/14 (*)] Fluticasone Nasal [Flonase Nasal 1 - 2 sprays EACHNARE HS 03/19/14 [place]] Lisinopril [Zestril 20 mg (*)] 20 mg PO DAILY 03/19/14 Magnesium Oxide [Magnesium Oxide 400 mg PO DAILY 03/19/14 400 mg (*)] Omeprazole 20 mg PO DAILY 03/19/14 Rosuvastatin Calcium [Crestor 20mg 20 mg PO HS 03/19/14 (*)] Hydrocodone/APAP 5/325 [[place] 1 tab PO Q6 PRN 03/20/14 5325 (*)] Prasugrel HCl [Effient 10mg (*)] 10 mg PO DAILY #30 tab 03/21/14 Isosorbide Mononitrate [Isosorbide 60 mg PO DAILY 10/15/14 Mononitrate ER] Ranolazine [RANEXA 500mg (RX)] 500 mg PO BID 03/02/16 Donepezil HCl [Aricept 5 MG (*)] 10 mg PO HS 09/19/16 Insulin Detemir [Levemir] 40 unit SQ BID 09/19/16 Metoprolol Succinate Xr [Toprol Xl 50 mg PO DAILY 09/19/16 50 mg (*)] Nitroglycerin [Nitrostat 0.4 mg 0.4 mg SL Q5M PRN 09/19/16 (*)] metFORMIN HCL [Glucophage 500 mg 500 mg PO BIDMEAL 09/19/16 (*)] oxyCODONE/APAP 5/325 [Percocet 1 tab PO Q6H PRN 09/19/16 5/325 (*)] Ciprofloxacin/Hydrocortisone 10 ml OT BID 7 Days #1 drops.susp 07/04/18 [Cipro Hc Otic Suspension] Amoxicillin Trihydrate 500 mg PO TID 7 Days cap 08/11/18 [Amoxicillin] Ciprofloxacin/Dexamethasone 1 - 2 drops OTIC BID #1 bottle 08/11/18 [Ciprodex (RX)] Medical Decision Making ED Course/Re-evaluation: The patient presents to the ED with recurrent bilateral otitis externa and otitis media in the left ear. Patient will be started on Ciprodex drops and also given a prescription for amoxicillin. I have asked the patient to follow up with our on-call Ear Nose Throat physician for further evaluation of his chronic intermittent ear infections. The patient is discharged home with no clinical evidence of meningitis. Departure - Departure Disposition: Home, Routine, Self-Care Clinical Impression: Otitis media, Otitis externa Condition: Good Instructions: Ear Infection (ED) Additional Instructions: 1. Apply antibiotic ear drops to each ear 1-2 drops 4 times a day 2. Take oral antibiotics as directed for next 7 days. 3. Please schedule a follow-up appointment with the agriculture specialist you have been referred to for a recheck within the week. Referrals: Glendy Martin MD [Medical Doctor] - As per Instructions
[2018-08-11 18:40] VITALS: BP 155/78
[2018-08-11] MEDS ORDERED: AMOXICILLIN 250 MG PREPACK#4 BTL TAKEHOME ONE (18:46)
== END 2018-08-11 18:40 | disposition home or self-care (01) ==
DX: H66.92 Otitis media, unspecified, left ear (principal); H60.92 Unspecified otitis externa, left ear

== ENCOUNTER 2018-08-23 17:51 | Emergency (ER) | payer OTHER, MEDICAID ==
--- NOTE | 2018-08-23 19:00 | EDPHY ---
H & P Time Seen by Provider: 08/23/18 18:15 HPI/ROS: Chief complaint: Right ear pain History of present illness: This is a 73-year-old male with a history of recurrent ear infections who presents to the emergency department for another one. He states over the last few days he started to develope pain in his right ear. He has had mild discharge. He denies associated signs or symptoms including no fevers, no other URI like symptoms, no headache. He was supposed to see an Ears Nose and Throat doctor today but his car battery was and he was unable to get to his appointment. Smoking Status: Never smoked Physical Exam: General: Alert, nontoxic. Eyes: PERRLA. ENT: Right external auditory canal is erythematous with mild edema. Foul discharge. I am able to visualize the tympanic membrane partially, it appears unremarkable from the aspect I can see. The external ear and surrounding tissue including over the mastoid is unremarkable. The left ear is unremarkable. There is no rhinorrhea. Oropharynx is not injected. There is no edema. There is no exudate. There is no asymmetry. The uvula is midline. No elevation of the tongue. There is no hoarseness, no drooling, no trismus, no stridor. Cardiac: Regular rate and rhythm. Lungs: Clear to auscultation bilaterally. Skin: No rash. Neurologic: No meningismus. Constitutional: Initial Vital Signs Temperature (C) 36.3 C 08/23/18 17:57 Heart Rate 60 08/23/18 17:57 Respiratory Rate 18 08/23/18 17:57 Blood Pressure 132/63 H 08/23/18 17:57 O2 Sat (%) 98 08/23/18 17:57 O2 Delivery Mode Room Air Allergies/Adverse Reactions: No Known Allergies Allergy (Verified 08/23/18 17:59) Home Medications: Medication Instructions Recorded Aspirin EC [Aspirin EC 325 mg (*)] 325 mg PO HS 03/19/14 Cholecalciferol Vit D3 [Vitamin D3 4,000 units PO DAILY 03/19/14 (*)] Fluticasone Nasal [Flonase Nasal 1 - 2 sprays [place] HS 03/19/14 [place]] Lisinopril [Zestril 20 mg (*)] 20 mg PO DAILY 03/19/14 Magnesium Oxide [Magnesium Oxide 400 mg PO DAILY 03/19/14 400 mg (*)] Omeprazole 20 mg PO DAILY 03/19/14 Rosuvastatin Calcium [Crestor 20mg 20 mg PO HS 03/19/14 (*)] Hydrocodone/APAP 5/325 [Albert 1 tab PO Q6 PRN 03/20/14 5/325 (*)] Prasugrel HCl [Effient 10mg (*)] 10 mg PO DAILY #30 tab 03/21/14 Isosorbide Mononitrate [Isosorbide 60 mg PO DAILY 10/15/14 Mononitrate ER] Ranolazine [RANEXA 500mg (RX)] 500 mg PO BID 03/02/16 Donepezil HCl [Aricept 5 MG (*)] 10 mg PO HS 09/19/16 Insulin Detemir [Levemir] 40 unit SQ BID 09/19/16 Metoprolol Succinate Xr [Toprol Xl 50 mg PO DAILY 09/19/16 50 mg (*)] Nitroglycerin [Nitrostat 0.4 mg 0.4 mg SL Q5M PRN 09/19/16 (*)] metFORMIN HCL [Glucophage 500 mg 500 mg PO BIDMEAL 09/19/16 (*)] oxyCODONE/APAP 5/325 [Percocet 1 tab PO Q6H PRN 09/19/16 5/325 (*)] Ciprofloxacin/Hydrocortisone 10 ml OT BID 7 Days #1 drops.susp 07/04/18 [Cipro Hc Otic Suspension] Amoxicillin Trihydrate 500 mg PO TID 7 Days cap 08/11/18 [Amoxicillin] Ciprofloxacin/Dexamethasone 1 - 2 drops OTIC BID #1 bottle 08/11/18 [Ciprodex (RX)] MDM/Departure - MDM Procedures: Murocel was cut to size. It was instilled into his right ear. 4 drops of Ciprodex were applied. The murocel conformed well to the ear canal. Patient felt better and tolerated the procedure well. Medications Given: Discontinued Medications Ciprofloxacin/Dexamethasone (Ciprodex) 4 drops RTEAR BID SANJUANA Stop: 02/19/19 20:59 Last Admin: 08/23/18 19:02 Dose: 1 btl ED Course/Re-evaluation: Patient is seen under the supervision of my secondary supervising physician Dr. Eunice Mi. Patient presents to the emergency department for right ear pain. He does appear to have an otitis externa. A wick has been created with Ciprodex applied. He will be discharged home on Ciprodex. He is referred to ENT for recheck. Return precautions are given. Patient voiced understanding and agreement with plan. Differential Diagnosis: Included but not limited to otitis externa, otitis media, unlikely mastoiditis - Depart Disposition: Home, Routine, Self-Care Clinical Impression: Otitis externa Qualifiers: Otitis externa type: unspecified type Chronicity: acute Laterality: right Qualified Code(s): H60.501 - Unspecified acute noninfective otitis externa, right ear Condition: Good Instructions: Otitis Externa (ED) Additional Instructions: Please call and arrange follow-up with an ENT on Sunday for recheck Place 4 drops of the antibiotic in your ear twice a day for 7 days Pull packing tomorrow If symptoms worsen or new symptoms develop return to the emergency room for recheck Referrals: Genaro Hirsch MD [Primary Care Provider] - As per Instructions David Atwood MD [Medical Doctor] - As per Instructions
[2018-08-23 19:41] VITALS: BP 109/63
[2018-08-23] MEDS ORDERED: CIPROFLOXACIN HCL/DEXAMETH 7.5 ML OTIC DROPS RTEAR SCH (21:00)
== END 2018-08-23 19:41 | disposition home or self-care (01) ==
DX: H60.501 Unspecified acute noninfective otitis externa, right ear (principal)

== ENCOUNTER → 2018-12-26 | Outpatient (CLI) | payer OTHER, MEDICAID | LOC: FIMAGING 11:50 ==